=== PATIENT | male | born 1965 | race African-American/Black ===

== ENCOUNTER 2018-03-12 08:32 | Emergency (ER) | payer BC, SELFPAY | END 2018-03-12 08:59 | disposition home or self-care (01) | LOC: ERS 08:32 | DX: M54.5 Low back pain (principal); E11.9 Type 2 diabetes mellitus without complications; I10 Essential (primary) hypertension; Z79.899 Other long term (current) drug therapy; Z79.84 Long term (current) use of oral hypoglycemic drugs | CPT/HCPCS: 99283 ==

== ENCOUNTER 2022-02-08 09:01 | Emergency (ER) | payer SELFPAY ==
[2022-02-08] MEDS ORDERED: Ketorolac Tromethamine 30 MG/ML VIAL ONE (10:39)
[2022-02-08] MEDS ORDERED: predniSONE 20 MG TAB ONE (10:39)
== END 2022-02-08 10:46 | disposition home or self-care (01) ==
LOC: ERS 09:01
DX: M76.891 Other specified enthesopathies of right lower limb, excluding foot (principal); E11.9 Type 2 diabetes mellitus without complications; Z79.899 Other long term (current) drug therapy; I10 Essential (primary) hypertension; Z79.84 Long term (current) use of oral hypoglycemic drugs
CPT/HCPCS: 96372; J1885; J7512